=== PATIENT | female | born 1985 | race Caucasian/White ===

== ENCOUNTER 2017-08-23 21:50 | Emergency (ER) | payer MEDICAID ==
[~2017-08-23] VITALS: Ht 160 cm; Wt 56.5 kg
[2017-08-23 22:15] VITALS: BP 122/65; PULSE 99; RESP 19; TEMP 99; O2SAT 100
[2017-08-23] MEDS ORDERED: FLUT1SPR5 EACH NARE (22:37)
[2017-08-23] MEDS ORDERED: AMOX875T PO (22:37)
--- NOTE | 2017-08-23 22:41 | PD ---
HPI Chief Complaint: Cold / Flu Symptoms Time Seen by Provider: 22:26 Travel History International Travel<30 days: No Contact w/Intl Traveler<30days: No Traveled to known affect area: No History of Present Illness HPI 32-year-old female presents for evaluation of sore throat and ear pressure. Symptoms started yesterday. Associated with myalgias, chills, nasal congestion and dry cough. Symptoms are mild to moderate, no obvious aggravating or relieving factors. Duration 2 days. No other sick contacts. No recent travel. No rash. No other complaints. PFSH Past Medical History Asthma: Yes Cardiovascular Problems: Yes (bradycardia) Respiratory: Yes (asthma) Influenza Vaccination: No ?: Unknown LMP: 08/09/17 Past Surgical History Section: Yes Other Surgery: Yes (L achielles tendon surgery) Social History Alcohol Use: No Tobacco Use: No Substance Use: No Allergies-Medications (Allergen,Severity, Reaction): Coded Allergies: No Known Drug Allergies (Verified Allergy, Unknown, 08/23/17) Reported Meds & Prescriptions Reported Meds & Active Scripts Active Flonase Nasal [place] (Fluticasone Nasal [place]) 50 Mcg/Act [place] 100 Mcg EACH NARE BID Amoxicillin 875 Mg Tab 875 Mg PO BID 10 Days Review of Systems Except as stated in HPI: all other systems reviewed are Neg Physical Exam Narrative GENERAL: Well-nourished female no acute distress SKIN: Warm and dry. HEAD: Atraumatic. Normocephalic. EYES: Pupils equal and round. No scleral icterus. No injection or drainage. ENT: No nasal bleeding or discharge. Mucous membranes pink and moist. Left tympanic membrane is mildly erythematous. There is mild oral pharyngeal erythema without exudate. NECK: Trachea midline. No JVD. No lymphadenopathy. CARDIOVASCULAR: Regular rate and rhythm. No murmur appreciated. RESPIRATORY: No accessory muscle use. Clear to auscultation. Breath sounds equal bilaterally. Data Data Last Documented VS Vital Signs Date Time Temp Pulse Resp B/P (MAP) Pulse Ox O2 Delivery O2 Flow Rate FiO2 08/23/17 22:15 99.0 99 19 122/65 (84) 100 MDM Medical Decision Making Medical Screen Exam Complete: Yes Emergency Medical Condition: Yes Medical Record Reviewed: Yes Differential Diagnosis Otitis media, pharyngitis, sinusitis, rhinitis Narrative Course Physical examination is reassuring. She appears to have mild otitis media and pharyngitis. She will be discharged with Flonase and amoxicillin. Diagnosis Primary Impression: Otitis media Additional Impression: Pharyngitis Departure Forms: Tests/Procedures, Work Release Enter return to work date: Aug 25, 2017 Additional Instructions: Medication as prescribed. Take Tylenol and ibuprofen as needed for fever and body aches per dosing instructions on the bottle. Stay well hydrated. Return for any emergent medical conditions. Med/Other Pt SpecificInfo: Prescription(s) given Scripts Fluticasone Nasal [place] (Flonase Nasal [place]) 50 Mcg/Act [place] 100 MCG EACH NARE BID for Allergies, #1 BOTTLE 0 Refills Prov: Bobby Trevino MD 08/23/17 Amoxicillin (Amoxicillin) 875 Mg Tab 875 MG PO BID for Infection for 10 Days, #20 TAB 0 Refills Prov: Bobby Trevino MD 08/23/17 Disposition: 01 DISCHARGE HOME Condition: Stable Rob Holt Aug 23, 2017 22:41
== END 2017-08-23 23:06 | disposition home or self-care (01) ==
LOC: NEPD 21:50
DX: H66.90 Otitis media, unspecified, unspecified ear (principal); J02.9 Acute pharyngitis, unspecified; J45.909 Unspecified asthma, uncomplicated
CPT/HCPCS: 99283